=== PATIENT | female | born 1960 | race African-American/Black ===

== ENCOUNTER 2016-04-13 18:27 | Emergency (ER) | payer OTHER ==
[~2016-04-13] VITALS: Ht 152.4 cm; Wt 68.0 kg
[2016-04-13 18:50] VITALS: BP 139/88
--- NOTE | 2016-04-13 19:57 | ED GI/GU/ABDOMINAL COMPLAINT ---
History of Present Illness General Chief Complaint: General Adult Stated Complaint: RIGHT BREAST PAIN Source: patient Exam Limitations: no limitations Vital Signs & Intake/Output Vital Signs & Intake/Output Vital Signs Date Time Temp Pulse Resp B/P Pulse O2 O2 Flow FiO2 Ox Delivery Rate 04/13 1850 97.9 69 20 139/88 99 Room Air Allergies Coded Allergies: No Known Allergies (04/13/16) Triage Note: TRIAGE: PT TO ER WITH NIECE C/C RT BREAST PAIN SINCE TUESDAY. DESCRIBES BURNING TYPE PAIN. HAS LUMPS TO AREA WELL AND "FEELS THE BLOOD VESSEL PULLING." ALSO STATES HAS "MINIMAL L BREAST PAIN" HAS HX OF BENIGN BREAST LUMPS. PT CREOLE SPEAKING, NIECE ASSISTS WITH TRANSLATIONS. Triage Nurses Notes Reviewed? yes ? N Is pt currently ? No HPI: Pt presents for eval of right breast pain radiating to right mid back since last week. gradual onset of burning, aching pain that worsens with palpation of a known right breast lump diagnosed 2-3 years ago. pt did not require any further intervention at that time. in addition, pt has a clear right nipple discharge. no sts, erythema, fever, cold symptoms. Past History Travel History Traveled to [place] past 21 day No Medical History Any Pertinent Medical History? see below for history Neurological: NONE EENT: NONE Cardiovascular: NONE Respiratory: NONE Gastrointestinal: NONE Hepatic: NONE Renal: NONE Musculoskeletal: NONE Psychiatric: NONE Endocrine: NONE Blood Disorders: NONE Cancer(s): BENIGN BREAST LUMPS INVESTMENT EXECUTIVE/Reproductive: NONE Surgical History Surgical History: non-contributory Psychosocial History What is your primary language [place] Creole Tobacco Use: Never used ETOH Use: occasional use Illicit Drug Use: denies illicit drug use Family History Hx Contributory? No Review of Systems Review of Systems Constitutional: Reports: no symptoms. EENTM: Reports: no symptoms. Respiratory: Reports: no symptoms. Cardiovascular: Reports: no symptoms. GI: Reports: no symptoms. Genitourinary: Reports: see HPI. Musculoskeletal: Reports: no symptoms. Skin: Reports: no symptoms. Neurological/Psychological: Reports: no symptoms. Hematologic/Endocrine: Reports: no symptoms. Immunologic/Allergic: Reports: no symptoms. All Other Systems: Reviewed and Negative Physical Exam Physical Exam Gastrointestinal: see below Comments: Gen.: Well-nourished, well-developed, no acute respiratory distress. Head: Normocephalic, atraumatic. Eyes: Normal inspection bilaterally Ears: Normal inspection bilaterally Nose: Normal inspection Throat/mouth : Moist mucosa Neck: Supple, full range of motion, no goiter Heart: Regular rate and rhythm, no murmurs rubs or gallops Lungs: Clear to auscultation bilaterally with normal air entry Chest: Nontender Back: Normal range of motion Abdomen: Soft, nontender, nondistended, normal bowel sounds Extremities: Normal range of motion grossly Neurologic: Cranial nerves grossly intact, speech is clear Skin: warm and dry Psychiatric: Calm, cooperative, no apparent delusions or hallucinations : Vague indistinct right breast mass in the upper inner quadrant of the right breast, no drainage. No erythema soft tissue swelling or ecchymoses. No rashes. Core Measures ACS in differential dx? No Severe Sepsis Present: No Septic Shock Present: No Progress Differential Diagnosis: BREAST CANCER, MASTITIS Plan of Care: Orders Procedure Date/time Status EKG 04/13 1907 Active Initial ED EKG: NSR, rate (68), no ST T wave changes Departure Departure Disposition: HOME OR SELF CARE Condition: Stable Clinical Impression Primary Impression: Breast cancer, right Qualifiers: Breast location: upper inner quadrant of breast Patient sex: female Qualified Code: C50.211 - Malignant neoplasm of upper-inner quadrant of right female breast Referrals: ANNIKA YU DO, MD,CECILE DAVIS MD,GORAN Vasquez PATIENT HAS NO PRIMARY CARE DR (PCP/Family) ODALIS ANDERSON,GARY DANIELS MD,CHRISTINA Multani Additional Instructions: Follow-up with ([facility]) or Cecile Kevin MD (breast surgeon) as soon as possible for evaluation of the right breast lump and nipple drainage. Please contact one of the primary care physician's listed for general medical evaluation as soon as possible as well. Return if any concerns or sudden worsening. Thank you for choosing the [facility] for your care. It was a pleasure to serve you today. Sergio Hays M.D. [facility] Departure Forms: Customer Survey General Discharge Information
== END 2016-04-13 20:23 ==
LOC: ERH 18:27
DX: N64.4 Mastodynia (principal); N64.52 Nipple discharge
CPT/HCPCS: 93005; 93010